=== PATIENT | female | born 1970 | race Caucasian/White ===

== ENCOUNTER 2020-06-30 10:28 | Outpatient (CLI) | payer BC, SELFPAY ==
--- NOTE | 2020-07-05 16:36 | WPDHOLTEREM ---
Holter/Event Monitor Holter/Event Monitor Date of procedure: 06/30/20 Procedure Type: 48 hour holter monitor Indications: Palpitations Conclusion: 1. 48 hour holter monitor on 06/30/20. 2. Underlying rhythm is sinus rhythm. HR range 59-124 bpm; average HR 81 bpm. 3. There are 9 premature supraventricular complexes. No supraventricular tachycardia. 4. There are 17 premature ventricular complexes. No ventricular tachycardia. 5. No sinoatrial or atrioventricular blocks. No significant pauses greater than 2 seconds. 6. Patient reports symptoms of fluttering, hard beating, slight pounding which demonstrate sinus rhythm, HR range 72-96 bpm.
== END 2020-06-30 10:29 | disposition home or self-care (01) ==
PROVIDERS: PCP Internal Medicine; Visit Provider Internal Medicine
DX: R00.2 Palpitations (principal); R03.0 Elevated blood-pressure reading, without diagnosis of hypertension
CPT/HCPCS: 93225; 93226

== ENCOUNTER 2020-09-21 15:31 | Outpatient (CLI) | payer BC, SELFPAY | END 2020-09-21 15:32 | disposition home or self-care (01) | LOC: ANHCOVIDVC 15:31 | PROVIDERS: PCP Internal Medicine | DX: Z23 Encounter for immunization (principal) | CPT/HCPCS: 0001A; 91300 ==

== ENCOUNTER 2020-10-10 17:17 | Outpatient (CLI) | payer BC, SELFPAY | END 2020-10-10 17:18 | disposition home or self-care (01) | LOC: ANHCOVIDVC 17:17 | PROVIDERS: PCP Internal Medicine | DX: Z23 Encounter for immunization (principal) | CPT/HCPCS: 0002A; 91300 ==

== ENCOUNTER → 2021-04-13 14:45 | Outpatient (CLI) | payer BC, SELFPAY ==
--- NOTE | ~2021-04-13 | MM_ITS ---
EXAMINATION: MM scrn alexandra implant BI w tawana HISTORY: Screening mammogram TECHNIQUE: Craniocaudal and mediolateral oblique 3-D tomosynthesis images with implant displacement a nd synthetic 2-D images were generated. Craniocaudal and mediolateral oblique views of the breasts wi thout implant displacement were obtained using full field digital mammography. CAD analysis was submi tted and interpreted. COMPARISON: No prior mammogram is available for comparison at this institution. BREAST PARENCHYMAL COMPOSITION: The breasts are heterogeneously dense, which may obscure small masses . FINDINGS: Status post bilateral augmentation mammoplasty. There is no evidence of suspicious mass, ca lcification, or architectural distortion to suggest malignancy in either breast. There has been no villavicencio spicious interval change. IMPRESSION: 1. No mammographic evidence of malignancy. 2. Recommend routine screening mammography in one year. BI-RADS Category 1: Negative Reviewed, dictated and finalized at location A.
== END ==
PROVIDERS: PCP Internal Medicine; Visit Provider Internal Medicine
DX: Z12.31 Encounter for screening mammogram for malignant neoplasm of breast (principal)
CPT/HCPCS: 77063; 77067

== ENCOUNTER 2021-12-08 09:31 | Observation (INO) | payer BC, SELFPAY ==
--- NOTE | ~2021-12-08 | CT_ITS ---
EXAMINATION: CT abdomen pelvis w con DATE: 12/08/2021 10:45 INDICATION: Abdomen pain TECHNIQUE: Computed tomography (CT) of the abdomen and pelvis was performed with 75 cc Omnipaque 350 intravenous contrast. The dose-length product was 331.79 mGy-cm. Automated exposure control and itera tive reconstruction technique were employed. COMPARISON: CT dated 11/03/2010 FINDINGS: Lung bases are unremarkable. Heart size normal. No significant vascular abnormality. No lym phadenopathy. Fatty infiltration of the liver. The spleen, pancreas, adrenal glands and kidneys are unremarkable. T here are multiple radiodensities throughout the bowel. There is abnormal thickening of the transverse , descending and sigmoid colon as well as rectum, consistent with colitis. There are breast implants. No free air or free fluid. Uterus is retroverted. No abnormal pelvic felix s or fluid collections. IMPRESSION: 1. Abnormal thickening of the left colon and rectum, consistent with colitis, most likely infectious or inflammatory. Reviewed, dictated and finalized at location B. IMPRESSION: 1. Abnormal thickening of the left colon and rectum, consistent with colitis, m ost likely infectious or inflammatory.
[2021-12-08 09:34] VITALS: BP 139/54; PULSE 83; RESP 18; TEMP 36.3; O2SAT 100
[2021-12-08 10:11] LABS: Basophils Absolute Auto 0.1 K/mm3 (0.0-0.1); Basophils Percent Auto 0.4 % (0.2-1.2); Eosinophils Absolute Auto 0.1 K/mm3 (0-0.3); Eosinophils Percent Auto 0.4 % (0-4.4); Hematocrit 41.9 % (37.0-47.0); Hemoglobin 13.4 g/dL (12.0-15.0); Immature Granulocyte Absolute 0.07 K/mm3 (0.00-0.031); Immature Granulocyte Percent A 0.5 % (0-0.5); Lymphocytes Absolute Auto 2.06 K/mm3 (0.9-3.2); Lymphocytes Percent Auto 14.7 % (18.3-44.2); Mean Corpuscular Hemoglobin 33.5 pg (26-34); Mean Corpuscular Volume 104.8 fl (80-100); Mean Platelet Volume 9.2 fl (7.4-10.4); Monocytes Absolute Auto 0.6 K/mm3 (0.1-0.6); Monocytes Percent Auto 4.6 % (2.6-8.5); Neutrophils Absolute Auto 11.2 K/mm3 (1.3-6.7); Neutrophils Percent Auto 79.4 % (45.5-73.1); Platelet Count Result 344 k/mm3 (150-375); Red Cell Distribution Width 13.1 % (11.5-14.5); White Blood Count 14.1 K/mm3 (4.5-10.0)
[2021-12-08 10:15] LABS: Add Urine Microscopic? YES; Appearance Urine Clear (Clear); Bilirubin Urine Negative (Negative); Blood Urine 2+ (Negative); Color Urine Yellow (Yellow); Glucose Urine UA Negative (Negative); Ketones Urine Negative (Negative); Leukocyte Esterase Ur Negative LEU/UL (Negative); Nitrate Urine Negative (Negative); Protein Urine Negative (Negative); Specific Grav Ur 1.025 (1.001-1.035); Urobilinogen Urine 0.2 mg/dL (<2.0); pH Urine 6.5 (5.0-9.0)
[2021-12-08 10:20] LABS: Alanine Aminotransferase 20 U/L (6-35); Albumin Level 4.2 g/dL (3.5-5.1); Alkaline Phosphatase 55 U/L (38-126); Anion Gap 7 mmol/L (8-16); Aspartate Amino Transferase 30 U/L (14-36); Bilirubin,Total 0.4 mg/dL (0.2-1.3); Blood Urea Nitrogen 16 mg/dL (7-17); Calcium 8.7 mg/dL (8.4-10.2); Carbon Dioxide 26 mmol/L (22-30); Chloride 105 mmol/L (98-107); Estimated CRCL calculation 73 ml/min; Estimated Glomerular Filt Rate > 60; Glucose 97 mg/dL (65-110); Lipase 53 U/L (23-300); Sodium 138 mmol/L (137-145)
--- NOTE | 2021-12-08 10:22 | ED.ABDPAIN ---
HPI - Abdominal Pain General Chief Complaint: Abdominal Pain Stated Complaint: abd pain, diarrhea Time Seen by Provider: 12/08/21 10:18 Source: patient Mode of arrival: ambulatory Limitations: no limitations History of Present Illness HPI narrative: Patient is 51 years old white female presents with suprapubic sharp stabbing pain started last night, associated with bloody diarrhea. She denies any fever, chills, nausea, vomiting, having similar symptoms, no blood thinner. History of hypertension, does not smoke or uses marijuana, drinks occasionally Related Data Home Medications Medication Instructions Recorded Confirmed norethindrone (contraceptive) 0.35 0.35 mg PO DAILY 06/14/20 11/08/21 mg tablet spironolactone 25 mg tablet 25 mg PO DAILY 06/29/20 11/08/21 Allergies Allergy/AdvReac Type Severity Reaction Status Date / Time NKA Allergy Unknown Unknown Uncoded 12/08/21 10:13 Review of Systems Review of Systems: All systems reviewed & are unremarkable except as noted in HPI and below PMFSH Past Medical History Medical History Anxiety with depression Benign essential hypertension BMI 25.0-25.9,adult BMI 26.0-26.9,adult Elevated blood pressure reading without diagnosis of hypertension Encounter for preventive health examination Encounter for routine adult health examination without abnormal findings Encounter for screening mammogram for malignant neoplasm of breast Follow up Heart palpitations Herpes labialis Migraines On long term acute care registered nurse drug therapy Pyogenic granuloma Tachycardia URI (upper respiratory infection) Family History Family History Father Diabetes mellitus Family history of hypercholesterolemia Hypertension Family history of kidney disease Family history of diabetes mellitus in first degree relative Other Family history of hypothyroidism Social History Social History Smoking status: Never smoker Second hand tobacco smoke exposure: No Alcohol intake: current Exam Narrative: General appearance: Well-developed, well-nourished Skin: Normal color Head: Normocephalic, nontraumatic Eyes: Clear conjunctiva ENT: Oropharynx normal, ears normal, nose normal Neck: Supple, nontender Chest and respiratory: Airway patent, no respiratory distress, no accessory muscle use Heart: Regular rate/rhythm Abdomen: Soft, nontender, no organomegaly, quiet bowel sounds Vascular: Normal peripheral pulses, normal capillary refill. 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 Consultations Consultation #1: Dr. Uribe Admit to hospitalist Date: 12/08/21 Time: 12:19 Vital Signs Vital signs: Vital Signs Temperature 36.3 C L 12/08/21 09:34 Pulse Rate 83 12/08/21 09:34 Respiratory Rate 18 12/08/21 09:34 Blood Pressure 139/54 L 12/08/21 09:34 Pulse Oximetry 100 12/08/21 09:34 Temperature 36.3 C L 12/08/21 09:34 Pulse Rate 83 12/08/21 09:34 Respiratory Rate 18 12/08/21 09:34 Blood Pressure 139/54 L 12/08/21 09:34 Pulse Oximetry 100 12/08/21 09:34 MDM - Abdominal Pain Lab Data Result diagrams: 12/08/21 10:02 12/08/21 10:02 Labs: Lab Results 12/08/21 12/08/21 12/08/21 Range/Units 10:02 10:02 10
[2021-12-08 10:24] LABS: Mucus Urine Rare /lpf; Squamous Epithelial Cell Urine Occasional /hpf (Few); WBC Urine 0-3 /hpf
[2021-12-08] MEDS: HYDROmorphone HCL INJ (*CRX) 1 MG/ML SYR 0.5 MG IV PUSH (10:43)
[2021-12-08] MEDS: SODIUM CHLORIDE 0.9% IV 1,000 ML 999 ML IV CONT (10:43)
[2021-12-08] MEDS: ONDANSETRON INJ 4 MG/2 ML VIAL IV PUSH ×2 (10:44→18:09)
[2021-12-08 11:01] LABS: Lactic Acid Reflex 0.8 mmol/L (0.7-2.0)
[2021-12-08] MEDS: metroNIDAZOLE 500 MG/ISO 100ML 500 MG/100 ML BAG 100 MG IVPB ×3 (12:25→23:49)
[2021-12-08 13:07] LABS: SARS-CoV-2 RNA PCR Negative
[2021-12-08 13:16] LABS: Hematocrit 37.1 % (37.0-47.0); Hemoglobin 12.1 g/dL (12.0-15.0)
--- NOTE | 2021-12-08 13:45 | PM.IMHP ---
H&P: HPI History of Present Illness Date/Time: 12/08/21 13:00 Chief Complaint: Abdominal pain and diarrhea. Narrative: This is a pleasant 51-year-old female with hypertension, migraine headaches, and depression who presented to the emergency department from home for evaluation of abdominal pain and diarrhea. Last evening at around 8 PM she developed periumbilical cramping with a sudden urge to have a bowel movement. She had a large loose stool thereafter and figured that her cramping would improve however it did not and it has persisted throughout the night. Occasionally she has sharp shooting pain in the lower quadrant as well which is worse with movement and touch. She estimates having upwards of a dozen diarrheal stools and this morning she noticed bright red blood admixed with the stool and she came in for evaluation. Pepto-Bismol x2 has seemed to slow down the diarrhea and she has not had a loose stool since arrival to the hospital today. CT scan of the abdomen and pelvis showed abnormal thickening of the left colon and rectum consistent with colitis and she is being admitted in this setting. She has a history of internal hemorrhoids but she has not had problems with them for many years. She is feeling a bit warm at this time but denies fever, chills, and sweats. She has not had any nausea or vomiting. She and her daughter ate sandwiches at [employer] yesterday and her daughter has not had similar symptoms however her daughter ate a different meat. She denies personal and family history of inflammatory bowel disease. She denies recent travel and antibiotic use. Weight has been stable. Review of Systems Review of Systems: 12 systems were reviewed. No cold or flu symptoms. No chest pain or shortness of breath. Except as document, all other systems were reviewed and are negative. [facility] Past Medical History Medical History (Updated 12/08/21 @ 13:21 by Caitlin Lew PA-C) Anxiety with depression Benign essential hypertension Herpes labialis Migraines Surgical History Surgical History (Updated 12/08/21 @ 13:21 by Caitlin Lew PA-C) History of laser assisted in situ keratomileusis History of tonsillectomy and adenoidectomy Family History Family History Father Diabetes mellitus Family history of hypercholesterolemia Hypertension Family history of kidney disease Family history of diabetes mellitus in first degree relative Other Family history of hypothyroidism Social History Social History (Updated 12/08/21 @ 14:42 by Caitlin Lew PA-C) Social History: Surrogate decision maker: Amaury Hightower, spouse. Code status: Full code. Smoking status: Never smoker Second hand tobacco smoke exposure: No Alcohol intake: current Alcohol use details: Social alcohol use and in moderation Substance use: never Last use: etoh socially, rarely drinks Living arrangements: with family Spiritual care concerns: No Meds Home Medications and Allergies Home Medications Medication Instructions Recorded Confirmed Type acyclovir 5 % topical cream 1 applic TOPICAL .COMPLEX #5 gm 06/10/19 11/08/21 Rx norethindrone (contraceptive) 0.35 0.35 mg PO DAILY 06/14/20 11/08/21 History mg tablet spironolactone 25 mg tablet 25 mg PO DAILY 06/29/20 11/08/21 History sertraline 50 mg tablet See Rx Instructions .ROUTE 01/18/21 11/08/21 Rx .COMPLEX #90 tablet ppdekgmgdj-ukwxhmegrhdfq-rbwovrrg 1 cap PO Q4-6H PRN #30 cap 04/11/21 11/08/21 Rx 50 mg-300 mg-40 mg capsule valacyclovir 1 gram tablet 2,000 mg PO .COMPLEX #30 tablet 04/11/21 11/08/21 Rx bupropion HCl 150 mg 24 hr tablet, See Rx Instructions .ROUTE 04/24/21 11/08/21 Rx extended release .COMPLEX #90 tablet tramadol 50 mg tablet 50 mg PO Q6H PRN #50 tablet 07/18/21 11/08/21 Rx atogepant 30 mg tablet 30 mg PO DAILY #90 tablet 08/10/21 11/08/21 Rx diltiazem HCl 360 mg See Rx Instructions .ROUTE 10/23/21 04
[2021-12-08 13:58] VITALS: BP 118/54; PULSE 71; RESP 16; O2SAT 98
[2021-12-08 14:21] VITALS: BP 118/54; PULSE 71; RESP 18; O2SAT 98
--- NOTE | 2021-12-08 14:36 | ADMGEN ---
This patient, Anika Hightower, was admitted to [facility] Surg Room 319-01. Patient/family oriented to hospital policies and general routines including ID bracelet, bed and alarms, visiting hours, pain management, procedures, bathroom and other care routines, personal items, smoking policy, room service/diet, and visiting hours. Information on how to activate the Rapid Response Team has been discussed. Patient/Family are encouraged to report perceived risks to care and to ask questions if they do not understand what they are told or what they should do.
[2021-12-08 14:44] VITALS: BMI 25.0
[2021-12-08] MEDS: SODIUM CHLORIDE 0.9% IV 1,000 ML 75 ML IV CONT (15:00)
[2021-12-08] MEDS: polyethylene glycoL 3350 238 GM BOTTLE PO (15:01)
[2021-12-08 15:58] VITALS: BP 115/61; PULSE 81; RESP 18; TEMP 36.1; O2SAT 100
--- NOTE | 2021-12-08 16:16 | WPDGICN ---
Assessment and Plan Assessment and plan (1) Bright red rectal bleeding: Code(s): K62.5 - Hemorrhage of anus and rectum Status: Acute Assessment and Plan: she began having diarrhea last night accompanied by severe lower abdominal pain. By this morning she was passing bloody diarrhea. CT scan shows colitis in the left colon, primarily rectum and sigmoid colon the possibilities are infectious colitis although that would usually be diffuse, also ischemic colitis or even acute onset of ulcerative colitis. I discussed these scenarios with the patient. I told her that a colonoscopy will help us elucidate the problem. We will also obtain stool cultures. I discussed colonoscopy and the prep and risks with the patient (2) Colitis: Code(s): K52.9 - Noninfective gastroenteritis and colitis, unspecified Status: Acute Assessment and Plan: per CT scan, colitis in the distal colon. Colonoscopy to be done tomorrow morning. Antibiotics have been begun, metronidazole and levofloxacin. GI Consult Note Consult date/time: 12/08/21 16:16 HPI: Anika Hightower is a 51 year old female who has been in good health except for problems with migraine headaches when she began to have lower abdominal pain yesterday evening she thought perhaps something she ate had upset her. At 1st she had intermittent cramping. Later it became a constant lower abdominal pain with waves that would make it more intense. She then began to have frequent bowel movements which became looser through the night. By this morning she is passing blood in her stools as well. The pain was sometimes he has a little bit after bowel movement but has not gone away completely. She was not nauseated. Was no vomiting. She has had no fever chills. There was no recent travel. She had been in [place] in August she has not started any new medications or been on antibiotics recently. Many years ago she had a colonoscopy because of rectal bleeding and was found to have internal hemorrhoids. There is no family history of inflammatory bowel disease Review of Systems Review of Systems: All systems reviewed & are unremarkable except as noted in HPI and below PMFSH Past Medical History Medical History Anxiety with depression Benign essential hypertension Herpes labialis Migraines Surgical History Surgical History History of laser assisted in situ keratomileusis History of tonsillectomy and adenoidectomy Family History Family History Father Diabetes mellitus Family history of hypercholesterolemia Hypertension Family history of kidney disease Family history of diabetes mellitus in first degree relative Other Family history of hypothyroidism Social History Social History Social History: Surrogate decision maker: Amaury Hightower, spouse. Code status: Full code. Smoking status: Never smoker Second hand tobacco smoke exposure: No Alcohol intake: current Alcohol use details: Social alcohol use and in moderation Substance use: never Last use: etoh socially, rarely drinks Living arrangements: with family Spiritual care concerns: No Meds Home Medications and Allergies Home Medications Medication Instructions Recorded Confirmed Type acyclovir 5 % topical cream 1 applic TOPICAL .COMPLEX #5 gm 06/10/19 11/08/21 Rx norethindrone (contraceptive) 0.35 0.35 mg PO DAILY 06/14/20 11/08/21 History mg tablet spironolactone 25 mg tablet 25 mg PO DAILY 06/29/20 11/08/21 History sertraline 50 mg tablet See Rx Instructions .ROUTE 01/18/21 11/08/21 Rx .COMPLEX #90 tablet dcyxtvjiaq-yuuwusudxlgaq-ngvthvon 1 cap PO Q4-6H PRN #30 cap 04/11/21 11/08/21 Rx 50 mg-300 mg-40 mg capsule valacyclovir 1 gram tablet 2,000 mg
[2021-12-08 16:30] LABS: Folic Acid 13.8 ng/mL (2.76->20)
[2021-12-08 20:00] VITALS: BP 121/52; PULSE 72; PULSE 81; RESP 16; RESP 18; TEMP 36.8; O2SAT 100
[2021-12-08] MEDS: ACETAMINOPHEN 325 MG TABLET 650 MG PO (20:51)
[2021-12-08] MEDS: LORazepam (*CRX) 0.5 MG TABLET PO (21:44)
[2021-12-09] VITALS (14 sets, daily range): BP systolic 92–134; BP diastolic 46–75; PULSE 72–88; RESP 16–20; TEMP 36.1–37.2; O2SAT 97–100
[2021-12-09 01:28] LABS: Hematocrit 35.1 % (37.0-47.0); Hemoglobin 11.3 g/dL (12.0-15.0)
[2021-12-09] MEDS: MAGNESIUM CITRATE 300 ML BTL 180 ML PO (02:15)
[2021-12-09] MEDS: metroNIDAZOLE 500 MG/ISO 100ML 500 MG/100 ML BAG 100 MG IVPB ×4 (05:24→23:46)
[2021-12-09] MEDS: SODIUM CHLORIDE 0.9% IV 1,000 ML 75 ML IV CONT (05:25)
[2021-12-09 07:27] LABS: Anion Gap 3 mmol/L (8-16); Blood Urea Nitrogen 3 mg/dL (7-17); Calcium 7.8 mg/dL (8.4-10.2); Carbon Dioxide 24 mmol/L (22-30); Chloride 110 mmol/L (98-107); Estimated CRCL calculation 84 ml/min; Estimated Glomerular Filt Rate > 60; Glucose 100 mg/dL (65-110); Magnesium 2.2 mg/dL (1.6-2.3); Potassium 3.5 mmol/L (3.4-5.0); Sodium 137 mmol/L (137-145)
[2021-12-09 07:44] LABS: Basophils Absolute Auto 0.1 K/mm3 (0.0-0.1); Basophils Percent Auto 0.4 % (0.2-1.2); Eosinophils Absolute Auto 0.1 K/mm3 (0-0.3); Eosinophils Percent Auto 0.8 % (0-4.4); Hematocrit 36.4 % (37.0-47.0); Hemoglobin 11.7 g/dL (12.0-15.0); Immature Granulocyte Absolute 0.04 K/mm3 (0.00-0.031); Immature Granulocyte Percent A 0.3 % (0-0.5); Lymphocytes Percent Auto 15.2 % (18.3-44.2); Mean Corpuscular HGB Conc 32.1 g/dl (32-36); Mean Corpuscular Hemoglobin 33.4 pg (26-34); Mean Platelet Volume 9.5 fl (7.4-10.4); Monocytes Absolute Auto 0.6 K/mm3 (0.1-0.6); Monocytes Percent Auto 5.4 % (2.6-8.5); Neutrophils Absolute Auto 9.2 K/mm3 (1.3-6.7); Neutrophils Percent Auto 77.9 % (45.5-73.1); Platelet Count Result 269 k/mm3 (150-375); Red Cell Distribution Width 13.2 % (11.5-14.5); White Blood Count 11.8 K/mm3 (4.5-10.0)
--- NOTE | 2021-12-09 07:45 | PC.NURSE ---
Patient down to GI lab via wheelchair at 0740.
--- NOTE | 2021-12-09 08:00 | WPDANESEPPF ---
Anes - Initial Pre Proc Eval Procedure: Operation Date: 12/09/21 08:00 Proposed Procedures p Esophagogastroduodenoscopy - Ha Uribe MD Date/Time: 12/09/21 08:00 Surgeon: Celeste Tompkins PA-C Pre Op Diagnosis: Colitis, GI Bleed Patient Data Age: 51 Gender: F Height: 1.65 m Weight: 68.2 kg Last Vital Signs Temp 36.1 C L 12/09/21 04:00 Pulse 86 12/09/21 04:00 Resp 16 12/09/21 04:00 BP 129/49 L 12/09/21 04:00 Pulse Ox 99 12/09/21 04:00 Allergies Allergy/AdvReac Type Severity Reaction Status Date / Time NKA Allergy Unknown Unknown Uncoded 12/09/21 07:55 Home Medications Medication Instructions Recorded Confirmed Type norethindrone (contraceptive) 0.35 0.35 mg PO DAILY 06/14/20 12/08/21 History mg tablet spironolactone 25 mg tablet 25 mg PO DAILY 06/29/20 12/08/21 History rvfynfztku-bnuyrulrxzbaz-yyzotmbv 1 cap PO Q4-6H PRN #30 cap 04/11/21 12/08/21 Rx 50 mg-300 mg-40 mg capsule tramadol 50 mg tablet 50 mg PO Q6H PRN #50 tablet 07/18/21 12/08/21 Rx atogepant 30 mg tablet 30 mg PO DAILY #90 tablet 08/10/21 12/08/21 Rx lorazepam 0.5 mg tablet 0.5 mg PO TID PRN #90 tablet 11/20/21 12/08/21 Rx acyclovir [Zovirax] See Rx Instructions .ROUTE 12/08/21 12/08/21 History .COMPLEX PRN bupropion HCl 150 mg PO DAILY 12/08/21 12/08/21 History diltiazem HCl 360 mg PO DAILY 12/08/21 12/08/21 History sertraline 50 mg PO DAILY 12/08/21 12/08/21 History ubrogepant [Ubrelvy] 50 mg PO DAILY PRN 12/08/21 12/08/21 History valacyclovir [Valtrex] 2,000 mg PO .COMPLEX PRN 12/08/21 12/08/21 History Laboratory Tests 12/08/21 12/08/21 12/08/21 10:02 10:02 10:02 WBC 14.1 K/mm3 H K/mm3 (4.5-10.0) RBC 4.00 M/mm3 L M/mm3 (4.2-5.4) Hgb 13.4 g/dL g/dL (12.0-15.0) Hct 41.9 % % (37.0-47.0) MCV 104.8 fl H fl (80-100) MCH 33.5 pg pg (26-34) MCHC 32.0 g/dl g/dl (32-36) RDW 13.1 % % (11.5-14.5) Plt Count 344 k/mm3 k/mm3 (150-375) MPV 9.2 fl fl (7.4-10.4) Immature Gran % (Auto) 0.5 % % (0-0.5) Neut % (Auto) 79.4 % H % (45.5-73.1) Lymph % (Auto) 14.7 % L % (18.3-44.2) [place] % (Auto) 4.6 % % (2.6-8.5) Eos % (Auto) 0.4 % % (0-4.4) Baso % (Auto) 0.4 % % (0.2-1.2) Lymph # (Auto) 2.06 K/mm3 K/mm3 (0.9-3.2) [place] # (Auto) 0.6 K/mm3 K/mm3 (0.1-0.6) Eos # (Auto) 0.1 K/mm3 K/mm3 (0-0.3) Baso # (Auto) 0.1 K/mm3 K/mm3 (0.0-0.1) Abs Immat Gran (auto) 0.07 K/mm3 H K/mm3 (0.00-0.031) Absolute Neuts (auto) 11.2 K/mm3 H K/mm3 (1.3-6.7) Absolute Nucleated RBC 0.0 K/mm3 K/mm3 (0.0-0.012) Nucleated RBC % 0.0 % % (0.0-0.2) Sodium 138 mmol/L mmol/L (137-145) Potassium 4.0 mmol/L mmol/L (3.4-5.0) Chloride 105 mmol/L mmol/L (98-107) Carbon Dioxide 26 mmol/L mmol/L (22-30) Anion Gap 7 mmol/L L mmol/L (8-16) BUN 16 mg/dL mg/dL (7-17) Creatinine 0.70 mg/dL mg/dL (0.7-1.0) Estim Creat Clear Calc 73 ml/min ml/min Estimated GFR > 60 (59 - ) Glucose 97 mg/dL mg/dL (65-110) Lactic Acid Calcium 8.7 mg/dL mg/dL (8.4-10.2) Magnesium Total Bilirubin 0.4 mg/dL mg/dL (0.2-1.3) AST 30 U/L U/L (14-36) ALT 20 U/L U/L (6-35) Alkaline Phosphatase 55 U/L U/L (38-126) Total Protein 8.0 g/dL g/dL (6.3-8.2) Albumin 4.2 g/dL g/dL (3.5-5.1) Lipase 53 U/L U/L (23-300) Vitamin B12 Folate Urine Color Yellow (Yellow) Urine Appearance Clear (Clear) Urine pH 6.5 (5.0-9.0) Ur Specific [place] 1.025 (1.001-1.035) Urine Protein Negative mg/dL mg/dL (Negative) U
[2021-12-09] MEDS: LACTATED RINGERS 1,000 ML 150 ML IV CONT (08:06)
--- NOTE | 2021-12-09 11:37 | PM.IMPN ---
Progress Note: A&P Assessment and Plan (1) Colitis: Code(s): K52.9 - Noninfective gastroenteritis and colitis, unspecified Status: Acute Assessment and Plan: -colonoscopy this AM revealed ischemic colitis -spoke w/ GI Dr. Uribe, plan is continue IV flagyl/levaquin overnight, plan dispo tomorrow -no anticoagulation per Dr. Uribe -stool studies pending (2) Bright red rectal bleeding: Code(s): K62.5 - Hemorrhage of anus and rectum Status: Acute Assessment and Plan: -Likely related to colitis; patient has a history of internal hemorrhoids. -hgb stable -GI following (3) Benign essential hypertension: Code(s): I10 - Essential (primary) hypertension Status: Acute Assessment and Plan: -stable -home meds Subjective Date/time seen: 12/09/21 11:37 Interval history: 51-year-old female with hypertension, migraine headaches, and depression, admitted for colitis. Had colonoscopy today showing ischemic colitis. She is feeling better, has no pain currently but she has not repositioned much. No N/V. Passing gas but no BM today. No cp/sob. Review of Systems Review of Systems: All systems reviewed & are unremarkable except as noted in HPI and below Exam Narrative: General: Well-developed female sitting up in bed. Weight: 68.18 kg. BMI: 25.0 HEENT: PERRL, EOMI. Sclerae anicteric. Moist mucous membranes Neck: Supple. Respiratory: Lungs are clear to auscultation bilaterally. Cardiovascular: Regular rate and rhythm with S1-S2. Gastrointestinal: Soft, non tender, no rebound or guarding Skin: Warm and dry. Extremities: No cyanosis, clubbing, or edema. Radial and pedal pulses intact. Neurological: Alert. Cranial nerves 2-12 are grossly intact. No gross focal deficits to casual conversation. Psychiatric: Pleasant and cooperative with normal mood and affect. Judgment and insight intact. Objective Data Vital Signs Vital Signs: Vital Signs - 24 hr 12/08/21 13:58 12/08/21 14:21 12/08/21 15:58 Temperature 96.9 F L Pulse Rate 71 71 81 Respiratory Rate 16 18 18 Blood Pressure 118/54 L 118/54 L 115/61 Pulse Oximetry 98 98 100 12/08/21 20:00 12/09/21 00:00 12/09/21 04:00 Temperature 98.2 F 98.9 F 96.9 F L Pulse Rate 72 76 86 Respiratory Rate 16 16 16 Blood Pressure 121/52 L 115/58 L 129/49 L Pulse Oximetry 100 99 99 12/09/21 08:00 12/09/21 08:23 12/09/21 09:36 Temperature 98.5 F Pulse Rate 72 80 Respiratory Rate 18 20 Blood Pressure 134/75 92/46 L Pulse Oximetry 100 98 99 12/09/21 09:46 12/09/21 09:56 12/09/21 10:15 Temperature 97.7 F Pulse Rate 74 72 81 Respiratory Rate 20 18 16 Blood Pressure 106/60 116/56 L 129/55 L Pulse Oximetry 100 100 100 12/09/21 10:30 Temperature 97.6 F Pulse Rate 80 Respiratory Rate 16 Blood Pressure 119/51 L Pulse Oximetry 100 Intake/Output Intake/Output: Intake & Output 12/06/21 12/07/21 12/08/21 12/09/21 23:59 23:59 23:59 23:59 Intake Total 2049 2049 Balance 2049 2049 Meds/Results Medications: Active Medications Generic Name Dose Route Start Last Admin Trade Name Freq PRN Reason Stop Dose Admin Acetaminophen 650 mg 12/08/21 20:00 12/08/21 20:51 Acetaminophen 325 Mg Tablet PO 650 mg Q6H PRN Administration Mild Pain (1-3) or Fever Bupropion HCl 150 mg 12/09/21 09:00 Bupropion Hcl Xl (24 Hr) 150 Mg Tabcr PO DAILY REPLACED BY [facility] Diltiazem HCl 360 mg 12/09/21 09:00 Diltiazem Hcl Cd 180 Mg Cap.Er.24h PO DAILY REPLACED BY [facility] Home Med 1 each 12/09/21 09:00 Atogepant [Qulipta] 30 Mg Tablet BY MOUTH 01/08/22 08:59 DAILY REPLACED BY [facility] Home Med 1 each 12/09/21 09:00 Norethindrone (Contraceptive) 0.35 Mg Tablet BY MOUTH 01/08/22 08:59 DAILY REPLACED BY [facility] Hydromorphone HCl 0.5 mg 12/09/21 09:51 Hydromorphone Hcl Inj (*Crx) 1 Mg/Ml Syr IV PUSH Q3H PRN Pain Rated 7-10 Sodium Chloride 1,000 mls @ 75 mls/hr 12/08/21 12:50 12/09/21
[2021-12-09] MEDS: dilTIAZem HCL CD 180 MG CAP.ER.24H 360 MG PO (12:33)
[2021-12-09] MEDS: SPIRONOLACTONE 25 MG TABLET PO (12:33)
[2021-12-09] MEDS: SERTRALINE HCL 50 MG TABLET PO (12:33)
[2021-12-09] MEDS: buPROPion HCL XL (24 HR) 150 MG TABCR PO (12:34)
[2021-12-09] MEDS: ONDANSETRON INJ 4 MG/2 ML VIAL IV PUSH (16:52)
[2021-12-09] MEDS: LORazepam (*CRX) 0.5 MG TABLET PO (16:52)
[2021-12-10 04:00] VITALS: BP 124/55; PULSE 76; RESP 18; TEMP 36.6; O2SAT 99
[2021-12-10] MEDS: metroNIDAZOLE 500 MG/ISO 100ML 500 MG/100 ML BAG 100 MG IVPB (05:08)
[2021-12-10 06:21] LABS: Basophils Absolute Auto 0.1 K/mm3 (0.0-0.1); Basophils Percent Auto 0.5 % (0.2-1.2); Eosinophils Absolute Auto 0.3 K/mm3 (0-0.3); Eosinophils Percent Auto 2.6 % (0-4.4); Hematocrit 36.2 % (37.0-47.0); Hemoglobin 11.3 g/dL (12.0-15.0); Immature Granulocyte Absolute 0.04 K/mm3 (0.00-0.031); Immature Granulocyte Percent A 0.4 % (0-0.5); Lymphocytes Absolute Auto 2.91 K/mm3 (0.9-3.2); Lymphocytes Percent Auto 29.4 % (18.3-44.2); Mean Corpuscular HGB Conc 31.2 g/dl (32-36); Mean Corpuscular Hemoglobin 32.7 pg (26-34); Mean Corpuscular Volume 104.6 fl (80-100); Mean Platelet Volume 9.5 fl (7.4-10.4); Monocytes Absolute Auto 0.8 K/mm3 (0.1-0.6); Monocytes Percent Auto 7.9 % (2.6-8.5); Neutrophils Absolute Auto 5.9 K/mm3 (1.3-6.7); Neutrophils Percent Auto 59.2 % (45.5-73.1); Platelet Count Result 264 k/mm3 (150-375); Red Blood Count 3.46 M/mm3 (4.2-5.4); Red Cell Distribution Width 13.2 % (11.5-14.5); White Blood Count 9.9 K/mm3 (4.5-10.0)
[2021-12-10 06:36] LABS: Alanine Aminotransferase 18 U/L (6-35); Albumin Level 3.2 g/dL (3.5-5.1); Alkaline Phosphatase 44 U/L (38-126); Anion Gap 5 mmol/L (8-16); Aspartate Amino Transferase 34 U/L (14-36); Bilirubin,Total 0.2 mg/dL (0.2-1.3); Calcium 7.8 mg/dL (8.4-10.2); Carbon Dioxide 25 mmol/L (22-30); Chloride 110 mmol/L (98-107); Estimated CRCL calculation 84 ml/min; Estimated Glomerular Filt Rate > 60; Glucose 88 mg/dL (65-110); Potassium 3.6 mmol/L (3.4-5.0); Sodium 140 mmol/L (137-145)
[2021-12-10 07:11] LABS: Blood Urea Nitrogen < 2 mg/dL (7-17)
[2021-12-10 08:00] VITALS: BP 119/61; PULSE 86; RESP 16; TEMP 36.4; O2SAT 98
[2021-12-10] MEDS: SODIUM CHLORIDE 0.9% IV 1,000 ML 75 ML IV CONT (08:10)
[2021-12-10] MEDS: dilTIAZem HCL CD 180 MG CAP.ER.24H 360 MG PO (08:10)
[2021-12-10] MEDS: SERTRALINE HCL 50 MG TABLET PO (08:10)
[2021-12-10] MEDS: SPIRONOLACTONE 25 MG TABLET PO (08:10)
[2021-12-10] MEDS: buPROPion HCL XL (24 HR) 150 MG TABCR PO (08:10)
[2021-12-10] MEDS: ACETAMINOPHEN 325 MG TABLET 650 MG PO (08:16)
--- NOTE | 2021-12-10 10:20 | WPDGIPROGNO ---
Progress Note: A&P Assessment and Plan (1) Bright red rectal bleeding: Code(s): K62.5 - Hemorrhage of anus and rectum Status: Acute Assessment and Plan: she began having diarrhea last night accompanied by severe lower abdominal pain. By this morning she was passing bloody diarrhea. CT scan shows colitis in the left colon, primarily rectum and sigmoid colon the possibilities are infectious colitis although that would usually be diffuse, also ischemic colitis or even acute onset of ulcerative colitis. I discussed these scenarios with the patient. I told her that a colonoscopy will help us elucidate the problem. We will also obtain stool cultures. I discussed colonoscopy and the prep and risks with the patient. 12/10 colonoscopy revealed classic changes of ischemic colitis in the splenic flexure watershed area. She does not have risk factors for vascular disease and not recently started on medications that would be culprits. We will perform an outpatient CTA. I suspect this this will be a 1 time occurrence in her case. (2) Colitis: Code(s): K52.9 - Noninfective gastroenteritis and colitis, unspecified Status: Acute Assessment and Plan: per CT scan, colitis in the distal colon. Colonoscopy to be done tomorrow morning. Antibiotics have been begun, metronidazole and levofloxacin. 12/10 I would send home on Augmentin for 5 days, as well as a low-fiber diet. I told her we will call when we get the results of the biopsies which would be Saturday. Subjective Date/time seen: 12/10/21 10:20 she is feeling good. She tolerated her liquids. She has had no blood in her stools. I discussed with her the findings, the ischemic colitis. I reviewed with her her medications. She had started 1 for migraines a couple months ago--Qulipta-- but I do not see where it would have a side effect on circulation. She remembers being told by her lumber estimator that she had something abnormal in terms of a vein when she had a pelvic ultrasound. I told her that we would plan to do an MRA in the near future to ensure that she has an intact inferior mesenteric artery which was the distribution of her ischemic colitis. So far stool cultures are negative. I will have her go home on antibiotics. Because she had a localized reaction to Levaquin. I think Augmentin would be preferable Exam Const: General: alert Orientation/consciousness: patient oriented x3 Resp: Auscultation: clear to auscultation bilaterally Cardio: Rhythm: regular rhythm GI: GI Palp: Yes Soft to palpation, Yes Tenderness to palpation present (GI) ( left lower quadrant and suprapubic) and No Guarding due to palpation present (GI) Auscultation: normal bowel sounds Neuro: General: patient oriented x3 Objective Data Vital Signs Vital Signs: Vital Signs - 24 hr 12/09/21 10:30 12/09/21 11:00 12/09/21 12:00 Temperature 36.4 C 36.8 C 36.6 C Pulse Rate 80 88 82 Respiratory Rate 16 16 16 Blood Pressure 119/51 L 118/49 L 110/60 Pulse Oximetry 100 100 98 12/09/21 16:00 12/09/21 20:00 12/09/21 23:58 Temperature 36.5 C 36.7 C 36.6 C Pulse Rate 75 83 84 Respiratory Rate 16 18 18 Blood Pressure 123/46 L 126/60 124/56 L Pulse Oximetry 100 97 97 12/10/21 04:00 12/10/21 08:00 Temperature 36.6 C 36.4 C Pulse Rate 76 86 Respiratory Rate 18 16 Blood Pressure 124/55 L 119/61 Pulse Oximetry 99 98 Intake/Output Intake/Output: Intake & Output 12/07/21 12/08/21 12/09/21 12/10/21 23:59 23:59 23:59 23:59 Intake Total 2049 4420 740 Balance 2049 4420 740 Meds/Results Medications: Active Medications Generic Name Dose Route Start Last Admin Trade Name Freq PRN Reason Stop Dose Admin Acetaminophen 650 mg 12/08/21 20:00 12/10/21 08:16 Acetaminophen 325 Mg Tablet PO 650 mg Q6H PRN Administration Mild Pain (1-3) or Fever Acetaminophen 650 mg 12/09/21 11:44 Acetaminophen 325 Mg Tablet PO Q4H PRN Mild Pain
--- NOTE | 2021-12-10 10:46 | PM.DS ---
DS: Admitting Diagnosis Discharge Date 12/10/21 Admitting Diagnosis colitis DS: Discharge Diagnosis Discharge Diagnosis (1) Colitis: Code(s): K52.9 - Noninfective gastroenteritis and colitis, unspecified Status: Acute Assessment and Plan: -colonoscopy yesterday revealed ischemic colitis -spoke w/ GI Dr. Uribe, plan is continue IV flagyl/levaquin overnight, plan dispo today -no anticoagulation per Dr. Uribe -stool studies pending, Dr. Uribe will follow -switching to Augmentin x5 dasys on discharge as she had a localized reaction to the IV Levaquin -vitals are stable, pt is non toxic appearing in no distress without abdominal pain. Stable for discharge at this time. -She is going to follow up with Dr. Uribe this week. (2) Bright red rectal bleeding: Code(s): K62.5 - Hemorrhage of anus and rectum Status: Acute Assessment and Plan: -Likely related to colitis; patient has a history of internal hemorrhoids. -hgb stable -GI following (3) Benign essential hypertension: Code(s): I10 - Essential (primary) hypertension Status: Acute Assessment and Plan: -stable -home meds DS: Summary Hospital Course Reason for hospitalization: 51-year-old female with hypertension, migraine headaches, and depression, admitted for colitis. Please see HPI for further details. Hospital Course: Please see above for details of hospital course. Status at Discharge Cognitive/behavioral status at discharge: stable Functional status at discharge: independent ambulation Overall status at discharge: patient is progressing back to baseline Time Spent with Patient Time attestation: Total time spent providing and/or coordinating discharge services: 35 Time spent: Greater than 30 minutes Exam Narrative: General: Well-developed female sitting up in bed. Weight: 68.18 kg. BMI: 25.0 HEENT: PERRL, EOMI. Sclerae anicteric. Moist mucous membranes Neck: Supple. Respiratory: Lungs are clear to auscultation bilaterally. Cardiovascular: Regular rate and rhythm with S1-S2. Gastrointestinal: Soft, non tender, no rebound or guarding Skin: Warm and dry. Extremities: No cyanosis, clubbing, or edema. Radial and pedal pulses intact. Neurological: Alert. Cranial nerves 2-12 are grossly intact. No gross focal deficits to casual conversation. Psychiatric: Pleasant and cooperative with normal mood and affect. Judgment and insight intact. DS: Data Data Completed and Pending Pending studies at discharge: Pending at discharge 12/09/21 09:36 Surgical [PTH] Routine Labs on day of discharge: Labs from last 24 hours 12/10/21 12/10/21 05:59 05:59 WBC 9.9 RBC 3.46 L Hgb 11.3 L Hct 36.2 L MCV 104.6 H MCH 32.7 MCHC 31.2 L RDW 13.2 Plt Count 264 MPV 9.5 Immature Gran % (Auto) 0.4 Neut % (Auto) 59.2 Lymph % (Auto) 29.4 Knott % (Auto) 7.9 Eos % (Auto) 2.6 Baso % (Auto) 0.5 Lymph # (Auto) 2.91 Knott # (Auto) 0.8 H Eos # (Auto) 0.3 Baso # (Auto) 0.1 Abs Immat Gran (auto) 0.04 H Absolute Neuts (auto) 5.9 Absolute Nucleated RBC 0.0 Nucleated RBC % 0.0 Sodium 140 Potassium 3.6 Chloride 110 H Carbon Dioxide 25 Anion Gap 5 L BUN < 2 L Creatinine 0.60 L Estim Creat Clear Calc 84 Estimated GFR > 60 Glucose 88 Calcium 7.8 L Total Bilirubin 0.2 AST 34 ALT 18 Alkaline Phosphatase 44 Total Protein 6.0 L Albumin 3.2 L Discharge Plan Discharge Attending physician on discharge: Bob Santiago Consulting providers: Ha Uribe Discharging Clinician: Celeste Tompkins Anticipated Discharge Date/Time: 12/10/21 10:49 Patient Disposition: Home, Self-Care Activity: may shower Diet: low fiber Discharge Instructions: Please take antibiotics as directed. Follow up with Dr. Uribe next week. Return to ED for any new or worsening symptoms. Nicolas
--- NOTE | 2021-12-13 11:41 | PC.NURSE ---
Stool studies are negative.
== END 2021-12-10 13:17 | disposition home or self-care (01) ==
LOC: ANHED 12:21 → ANH3MEDSUR 14:01
PROVIDERS: Internal Medicine Gastroenterology; Physician Assistant; Admitting Provider Internal Medicine; Emergency Provider Emergency Medicine; PCP Internal Medicine; Visit Provider Physician Assistant
PROC: 0DJ08ZZ Inspection of Upper Intestinal Tract, Via Natural or Artificial Opening Endoscopic (ICD-10-PCS; CPT 43235; principal; 2021-12-09 08:00)
DX: K52.9 Noninfective gastroenteritis and colitis, unspecified (principal); K62.5 Hemorrhage of anus and rectum; I10 Essential (primary) hypertension; G43.919 Migraine, unspecified, intractable, without status migrainosus; F41.8 Other specified anxiety disorders; B00.1 Herpesviral vesicular dermatitis; Z20.822 Contact with and (suspected) exposure to COVID-19
CPT/HCPCS: 45380; 36415; 74177; 80048; 80053; 81001; 81025; 82607; 82746; 83605; 83690; 83735; 85014; 85018; 85025; 87045; 87269; 87272; 87427; 88305; 96361; 96365; 96366; 96367; 96375; 96376; 99285; A9270; C9803; G0378; J0131; J1170; J1956; J2405; J2704; J7030; J7120; Q9967; U0003; U0005

== ENCOUNTER 2022-01-31 09:15 | Outpatient (CLI) | payer BC, SELFPAY ==
[2022-02-07 19:17] LABS: Calprotectin, Stool 136 mcg/g
== END 2022-01-31 09:16 | disposition home or self-care (01) ==
PROVIDERS: PCP Internal Medicine; Visit Provider Internal Medicine Gastroenterology
DX: K55.9 Vascular disorder of intestine, unspecified (principal)
CPT/HCPCS: 83993

== ENCOUNTER 2022-03-16 01:26 | Day surgery (SDC) | payer BC, SELFPAY ==
[2022-03-02 14:11] VITALS: BMI 24.1
--- NOTE | 2022-03-15 16:34 | PM.HPGS ---
History of Present Illness History of Present Illness Consent: Risks, benefits, and alternatives have been discussed and questions answered. Patient agrees to proceed with procedure. Chief complaint: ischemic colitis Narrative: Anika Hightower is a 51 year old female Who was hospitalized 2 months ago with acute colitis. Colonoscopy and biopsy confirmed that was ischemic colitis. Subsequently, an outpatient CT angiogram showed no evidence of mesenteric vessel disease. She subsequently however has continued to have pains in the lower left side of her abdomen. A calprotectin level was done that was elevated. It therefore is concerning that she may have in fact inflammatory bowel disease. . Review of Systems Review of Systems: All systems reviewed & are unremarkable except as noted in HPI and below PMFSH Past Medical History Medical History Anxiety with depression Benign essential hypertension Herpes labialis Migraines Surgical History Surgical History History of laser assisted in situ keratomileusis History of tonsillectomy and adenoidectomy Family History Family History Father Diabetes mellitus Family history of hypercholesterolemia Hypertension Family history of kidney disease Family history of diabetes mellitus in first degree relative Other Family history of hypothyroidism Social History Social History Social History: Surrogate decision maker: Amaury Hightower, spouse. Code status: Full code. Smoking status: Never smoker Second hand tobacco smoke exposure: No Alcohol intake: current Alcohol use details: Social alcohol use and in moderation Substance use: never Last use: etoh socially, rarely drinks Living arrangements: with family Spiritual care concerns: No Meds Home Medications and Allergies Home Medications Medication Instructions Recorded Confirmed Type norethindrone (contraceptive) 0.35 0.35 mg PO DAILY 06/14/20 03/16/22 History mg tablet spironolactone 25 mg tablet 25 mg PO DAILY 06/29/20 03/16/22 History cvjuybyfvv-ycvdhtymipuee-qozzwxrl 1 cap PO Q4-6H PRN pain #30 caps 04/11/21 03/16/22 Rx 50 mg-300 mg-40 mg capsule atogepant 30 mg tablet (Qulipta) 30 mg PO DAILY #90 tabs 08/10/21 03/16/22 Rx lorazepam 0.5 mg tablet 0.5 mg PO TID PRN anxiety #90 tabs 11/20/21 03/16/22 Rx acyclovir 5 % topical cream See Rx Instructions .Route 12/08/21 03/16/22 History (Zovirax) .COMPLEX PRN fever blister bupropion HCl 150 mg 24 hr tablet, 150 mg PO DAILY 12/08/21 03/16/22 History extended release ubrogepant 50 mg tablet (Ubrelvy) 50 mg PO DAILY PRN Migraine 12/08/21 03/16/22 History Headache valacyclovir 1 gram tablet 2,000 mg PO .COMPLEX PRN fever 12/08/21 03/16/22 History (Valtrex) blister diltiazem HCl 180 mg 360 mg PO DAILY #180 caps 02/06/22 03/16/22 Rx capsule,extended release 24 hr tramadol 50 mg tablet 50 mg PO Q6H PRN pain #50 tabs 02/06/22 03/16/22 Rx sertraline 50 mg tablet See Rx Instructions .Route 02/16/22 03/16/22 Rx .COMPLEX #90 tabs Allergies Allergy/AdvReac Type Severity Reaction Status Date / Time No Known Allergies Allergy Verified 03/16/22 08:17 Exam Resp: Auscultation: clear to auscultation bilaterally Cardio: Rate: regular rate Rhythm: regular rhythm GI: GI Palp: Yes Soft to palpation and No Tenderness to palpation present (GI) Assessment and Plan Assessment and plan (1) Colitis: Code(s): K52.9 - Noninfective gastroenteritis and colitis, unspecified Status: Acute Assessment and Plan: Colonoscopy with possible biopsy or polypectomy or cautery or injection of substances.
[2022-03-16 08:18] VITALS: BP 112/48; PULSE 95; RESP 16; TEMP 36.4; O2SAT 100; BMI 23.8
[2022-03-16] MEDS: LACTATED RINGERS 1,000 ML 150 ML IV CONT (08:26)
--- NOTE | 2022-03-16 08:59 | WPDANESEPPF ---
Anes - Initial Pre Proc Eval Procedure: Operation Date: 03/16/22 09:30 Proposed Procedures p Colonoscopy - Ha Uribe MD Date/Time: 03/16/22 08:59 Surgeon: Ha Uribe MD Pre Op Diagnosis: ischemic colitis Patient Data Age: 51 Gender: F Height: 1.65 m Weight: 64.8 kg Last Vital Signs Temp 97.5 F L 03/16/22 08:18 Pulse 95 03/16/22 08:18 Resp 16 03/16/22 08:18 BP 112/48 L 03/16/22 08:18 Pulse Ox 100 03/16/22 08:18 O2 Del Method Room Air 03/16/22 08:18 Allergies Allergy/AdvReac Type Severity Reaction Status Date / Time No Known Allergies Allergy Verified 03/16/22 08:17 Home Medications Medication Instructions Recorded Confirmed Type norethindrone (contraceptive) 0.35 0.35 mg PO DAILY 06/14/20 03/16/22 History mg tablet spironolactone 25 mg tablet 25 mg PO DAILY 06/29/20 03/16/22 History qgoqyjjmjy-vjoykmqdvyjjh-ootircoe 1 cap PO Q4-6H PRN pain #30 caps 04/11/21 03/16/22 Rx 50 mg-300 mg-40 mg capsule atogepant 30 mg tablet (Qulipta) 30 mg PO DAILY #90 tabs 08/10/21 03/16/22 Rx lorazepam 0.5 mg tablet 0.5 mg PO TID PRN anxiety #90 tabs 11/20/21 03/16/22 Rx acyclovir 5 % topical cream See Rx Instructions .Route 12/08/21 03/16/22 History (Zovirax) .COMPLEX PRN fever blister bupropion HCl 150 mg 24 hr tablet, 150 mg PO DAILY 12/08/21 03/16/22 History extended release ubrogepant 50 mg tablet (Ubrelvy) 50 mg PO DAILY PRN Migraine 12/08/21 03/16/22 History Headache valacyclovir 1 gram tablet 2,000 mg PO .COMPLEX PRN fever 12/08/21 03/16/22 History (Valtrex) blister diltiazem HCl 180 mg 360 mg PO DAILY #180 caps 02/06/22 03/16/22 Rx capsule,extended release 24 hr tramadol 50 mg tablet 50 mg PO Q6H PRN pain #50 tabs 02/06/22 03/16/22 Rx sertraline 50 mg tablet See Rx Instructions .Route 02/16/22 03/16/22 Rx .COMPLEX #90 tabs Patient hx anesthesia problems: none Family hx anesthesia problems: none Results Review: All pre-operative results and documents have been reviewed as part of the pre-operative evaluation. [facility] Past Medical History Medical History Anxiety with depression Benign essential hypertension Herpes labialis Migraines Surgical History Surgical History History of laser assisted in situ keratomileusis History of tonsillectomy and adenoidectomy Family History Family History Father Diabetes mellitus Family history of hypercholesterolemia Hypertension Family history of kidney disease Family history of diabetes mellitus in first degree relative Other Family history of hypothyroidism Social History Social History Social History: Surrogate decision maker: Amaury Hightower, spouse. Code status: Full code. Smoking status: Never smoker Second hand tobacco smoke exposure: No Alcohol intake: current Alcohol use details: Social alcohol use and in moderation Substance use: never Last use: etoh socially, rarely drinks Living arrangements: with family Spiritual care concerns: No Anes - Eval Final PreProcedure Day of Procedure 03/16/22 08:59 Patient weight: normal Heart: regular rate and rhythm Lungs: clear to auscultation Airway: Mallampati scale class II Neurological: alert and oriented Last oral intake: >/= 8 hours ASA classification: II Emergent: no Anesthetic plan: proceed Anesthesia type and monitoring: general GIVS and standard monitoring Results Review: All pre-operative results and documents have been reviewed as part of the pre-operative evaluation. Informed Consent: The patient's anesthetic plan and its attendant risks and benefits were discussed with the patient/family/POA. Questions were solicited and answers provided to the satisfaction of the patient/family/POA.
[2022-03-16 09:44] VITALS: BP 103/50; PULSE 75; RESP 22; O2SAT 100
[2022-03-16 09:54] VITALS: BP 115/55; PULSE 64; RESP 20; O2SAT 98
[2022-03-16 10:04] VITALS: BP 131/58; PULSE 66; RESP 20; O2SAT 100
== END 2022-03-16 10:13 | disposition home or self-care (01) ==
PROVIDERS: PCP Internal Medicine; Visit Provider Internal Medicine Gastroenterology
PROC: 0DJD8ZZ Inspection of Lower Intestinal Tract, Via Natural or Artificial Opening Endoscopic (ICD-10-PCS; CPT 45378; principal; 2022-03-16 09:30)
DX: Z09 Encounter for follow-up examination after completed treatment for conditions other than malignant neoplasm (principal); K57.30 Diverticulosis of large intestine without perforation or abscess without bleeding; R19.4 Change in bowel habit; F41.9 Anxiety disorder, unspecified; F32.A Depression, unspecified; I10 Essential (primary) hypertension
CPT/HCPCS: 45378; J2704; J7120

== ENCOUNTER 2024-03-10 15:10 | Outpatient (CLI) | payer OTHER, SELFPAY ==
--- NOTE | ~2024-03-10 | XR_ITS ---
EXAMINATION: XR foot LT 2V, XR foot RT 2V, XR ankle LT 2V, XR ankle RT 2V DATE: 03/10/2024 15:31 INDICATION: Bilateral foot and ankle pain and bruising post fall TECHNIQUE: 1. Anteroposterior and lateral view of the left ankle were obtained. 2. Dorsoplantar and lateral views of the left foot were obtained. 3. Anteroposterior and lateral view of the right ankle were obtained. 4. Dorsoplantar and lateral views of the right foot were obtained. COMPARISON: None. FINDINGS: Alignment of the bilateral feet and ankles is normal. No fracture or osteochondral lesion. 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 No ankle joint effusion. Th ere is soft tissue swelling overlying the left and right lateral malleoli. IMPRESSION: 1. No acute osseous abnormality at the allograft right feet or ankles. Reviewed, dictated and finalized at location A. IMPRESSION: 1. No acute osseous abnormality at the allograft right feet or ankles. IMPRESSION: 1. No acute osseous abnormality at the allograft right feet or ankles. IMPRESSION: 1. No acute osseous abnormality at the allograft right feet or ankles.
== END 2024-03-10 15:11 ==
LOC: MICIMG 15:11
PROVIDERS: PCP Internal Medicine; Visit Provider Internal Medicine
DX: M79.672 Pain in left foot (principal); M79.671 Pain in right foot; W19.XXXA Unspecified fall, initial encounter
CPT/HCPCS: 73600; 73620